=== PATIENT | female | born 1975 | race African-American/Black ===

== ENCOUNTER 2024-05-19 16:51 | Emergency (ER) | payer OTHER ==
[~2024-05-19] VITALS: Ht 165.1 cm; Wt 83.5 kg
[2024-05-19 17:03] VITALS: TEMP 98.3
[2024-05-19] MEDS ORDERED: CYCLOBENZAPRINE 10 MG TABLET ONE ×2 (17:23→17:24)
[2024-05-19] MEDS ORDERED: KETOROLAC TROMETHAMINE INJ 30 MG/ML VIAL ONE (17:23)
[2024-05-19] MEDS: KETOROLAC TROMETHAMINE INJ 30 MG/ML VIAL IM ONE (17:30)
[2024-05-19] MEDS: CYCLOBENZAPRINE 10 MG TABLET PO ONE (17:30)
[2024-05-19] MEDS ORDERED: CYCL5TAB PO (18:00)
[2024-05-19 18:23] VITALS: BP 120/87; O2SAT 98
== END 2024-05-19 18:24 | disposition home or self-care (01) ==
LOC: ER 16:56
DX: M54.50 Low back pain, unspecified (principal); Z60.2 Problems related to living alone
CPT/HCPCS: 99283; 96372; J1885